=== PATIENT | male | born 1990 | race Caucasian/White ===

== ENCOUNTER 2021-05-21 14:49 | Emergency (ER) | payer MEDICAID ==
[2021-05-21] MEDS ORDERED: Ondansetron 4 MG/2 ML SDV IVPUSH ONE ×2 (15:12→16:22)
[2021-05-21] MEDS ORDERED: HYDROmorphone 0.5 MG/0.5 ML Syringe IVPUSH ONE (15:12)
[2021-05-21] MEDS ORDERED: Sodium Chloride 0.9% 10 ML Syringe FLUSH PRN (15:12)
[2021-05-21] MEDS ORDERED: Sodium Chloride 0.9% 1,000 ML IV STA ×2 (15:12→18:34)
[2021-05-21] MEDS ORDERED: Diatrizoate Meglumine/Diatrizoate Sodium 37% 120 ML Bottle PO ONE (17:21)
[2021-05-21] MEDS ORDERED: Iopamidol 612 MG/ML 100 ML Bottle IVPUSH ONE (17:21)
[2021-05-21] MEDS ORDERED: Iopamidol 612 MG/ML 50 ML SDV IVPUSH ONE (17:22)
--- NOTE | 2021-05-21 17:56 | CT ---
CT abdomen and pelvis Technique: Multiple axial sections were obtained from above the dome of the diaphragm inferiorly to the pubic symphysis. Intravenous and oral contrast were utilized. Reconstructed coronal and sagittal images were obtained. Delayed images were also obtained through the bladder. Comparison: No previous CT abdomen or pelvis studies available. Findings: Visualized lung bases show nothing acute. Pectus excavatum deformity is noted. Liver shows diminished density next to the ligamentum teres which is incidental. Liver shows nothing acute. Spleen size is normal. Adrenal glands show no nodule. Gallbladder contains no calcified gallstones. Kidneys show symmetric contrast enhancement without hydronephrosis or mass. Pancreas shows no discrete abnormality. Abdominal aorta shows no aneurysm. No retroperitoneal adenopathy or mesenteric abnormalities are seen. Appendix is seen which is normal. No pelvic mass or adenopathy is seen. No free fluid or inflammatory change is seen. Slight increased stool is noted throughout the colon. Delayed images shows contrast within the distal ureters and within the bladder. Bone window settings were reviewed which appears within normal limits for the patient's age. Impression: 1. Mild increased stool within the colon. 2. Pectus excavatum deformity. 3. Nothing acute is otherwise seen on CT study of the abdomen and pelvis. Diagnostic code #2
--- NOTE | 2021-05-21 18:16 | EDM.PDOC ---
ED HPI GENERAL MEDICAL PROBLEM - General Chief Complaint: Genitourinary Problem Stated Complaint: VOMITING RED URINE KIDNEY AREA PAIN Time Seen by Provider: 05/21/21 14:54 Source of Information: Reports: Patient, RN Notes Reviewed History Limitations: Reports: No Limitations - History of Present Illness INITIAL COMMENTS - FREE TEXT/NARRATIVE: Patient is a 30-year-old male presenting to the emergency department with complaints of nausea and vomiting, low back pain, and dark urine. He developed nausea and vomiting last evening. He last voided around 2:00 this morning and states that his urine was quite dark in color. He suspects there may have been blood in it. He complains of bilateral low back pain. He has some generalized abdominal pain which she states started after he had vomited a few times. The time of his onset of vomiting, he had no abdominal pain. Patient has a history of kidney stones with the last being approximately 4 years ago. States this feels similar to that occurrence. Last bowel movement was yesterday, however he states it was quite difficult for him to go. He states he does feel constipated. He is from [place] and [place]. Denies any fever or chills, but states he does get sweaty when he vomits. Denies any chronic medical conditions. Lower Back Pain Score (Numeric/FACES): 7 - Related Data Allergies Allergy/AdvReac Type Severity Reaction Status Date / Time No Known Allergies Allergy Verified 05/21/21 15:14 Home Meds: Home Meds . 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 Denies: Fever, Chills HEENT: Reports: No Symptoms Respiratory: Reports: No Symptoms Cardiovascular: Reports: No Symptoms Endocrine: Reports: No Symptoms GI/Abdominal: Reports: Abdominal Pain (Generalized), Constipation, Nausea, Vomiting. Denies: Bloody Stool, Diarrhea : Reports: Hematuria Musculoskeletal: Reports: Back Pain (Bilateral low back) Skin: Reports: No Symptoms Neurological: Reports: No Symptoms Psychiatric: Reports: No Symptoms Hematologic/Lymphatic: Reports: No Symptoms Immunologic: Reports: No Symptoms ED EXAM, RENAL/ - Physical Exam Exam: See Below Exam Limited By: No Limitations General Appearance: Alert, Mild Distress, Active Emesis Respiratory/Chest: No Respiratory Distress, Lungs Clear, Normal Breath Sounds, No Accessory Muscle Use, Chest Non-Tender Cardiovascular: Normal Peripheral Pulses, Regular Rate, Rhythm, No Edema, No Gallop, No JVD, No Murmur, No Rub GI/Abdominal: Normal Bowel Sounds, Soft, No Organomegaly, No Distention, No Abnormal Bruit, No Mass, Tender (Mild generalized tenderness throughout). No: Guarding, Rigid, Rebound Back Exam: Normal Inspection, Full Range of Motion, Paraspinal Tenderness (Bilateral low back). No: CVA Tenderness (L), CVA Tenderness (R) Neurological: Alert, Oriented, CN II-XII Intact, Normal Cognition, Normal Gait, Normal Reflexes, No Motor/Sensory Deficits Psychiatric: Normal Affect, Normal Mood Skin Exam: Warm, Dry, Intact, Normal Color, No Rash Course - Vital Signs Last Recorded V/S: Last Vital Signs Temp 97.9 F 05/21/21 18:43 Pulse 82 05/21/21 18:43 Resp 16 05/21/21 18:43 BP 148/79 H 05/21/21 18:43 Pulse Ox 100 05/21/21 18:43 - Orders/Labs/Meds Orders: Active Orders 24 hr Category Date Time Status Peripheral IV Care [RC] . DIRECTED Care 05/21/21 15:12 Active Sodium Chloride 0.9% [Saline Flush] Med 05/21/21 15:12 Active 10 ml FLUSH ASDIRECTED PRN Peripheral IV Insertion Adult [OM.PC] Stat Oth 05/21/21 15:12 Ordered Medication Orders Sodium Chloride (Sodium Chloride 0.9% 10 Ml Syringe) 10 ml FLUSH ASDIRECTED PRN PRN Reason: Keep Vein Open Last Admin: 05/21/21 15:51 Dose: 10 ml Documented by: KEESHA Labs: Laboratory Tests 05/21/21 05/21/21 05/21/21 Range/Units 15:40 15:40 17:00 WBC 23.73 H (4.23-9.07) K/mm3 RBC 5.92 (4.63-6.08) M/mm3 Hgb 16.9 (13.7-17.5) gm/dl Hct 48.6 (40.1-51.0) % MCV 82.1 (79.0-92.2) fl MCH 28.5 (25.7-32.2) pg MCHC 34.8 (32.2-35.5) g/dl RDW Std Deviation 40.7 (35.1-43.9) fL Plt Count 373 H (163-337) K/mm3 MPV 10.1 (9.4-12.3) fl Neut % (Auto) 82.9 H (34.0-67.9) % Lymph % (Auto) 7.5 L (21.8-53.1) % [place] % (Auto) 8.8 (5.3-12.2) % Eos % (Auto) 0 L (0.8-7.0) Baso % (Auto) 0.5 (0.1-1.2) % Neut # (Auto) 19.69 H (1.78-5.38) K/mm3 Lymph # (Auto) 1.77 (1.32-3.57) K/mm3 [place] # (Auto) 2.09 H (0.30-0.82) K/mm3 Eos # (Auto) 0.00 L (0.04-0.54) K/mm3 Baso # (Auto) 0.11 H (0.01-0.08) K/mm3 Manual Slide Review Abnormal smear Sodium 145 (136-145) mEq/L Potassium 3.4 L (3.5-5.1) mEq/L Chloride 97 L (98-107) mEq/L Carbon Dioxide 33 H (21-32) mEq/L Anion Gap 18.4 H (5-15) BUN 28 H (7-18) mg/dL Creatinine 1.6 H (0.7-1.3) mg/dL Est Cr Clr Drug Dosing 84.39 mL/min Estimated GFR (MDRD) 52 (>60) mL/min BUN/Creatinine Ratio 17.5 (14-18) Glucose 134 H (70-99) mg/dL Calcium 10.8 H (8.5-10.1) mg/dL Total Bilirubin 1.0 (0.2-1.0) mg/dL AST 19 (15-37) U/L ALT 18 (16-63) U/L Alkaline Phosphatase 103 (46-116) U/L Creatine Kinase 216 (39-308) U/L C-Reactive Protein <0.2 (<1.0) mg/dL Total Protein 10.1 H (6.4-8.2) g/dl Albumin 5.9 H (3.4-5.0) g/dl Globulin 4.2 gm/dL Albumin/Globulin Ratio 1.4 (1-2) Urine Color Dark yellow (Yellow) Urine Appearance Slt cloudy H (Clear) Urine pH 7.0 (5.0-8.0) Ur Specific [place] 1.025 (1.005-1.030) Urine Protein 3+ H (Negative) Urine Glucose (UA) Negative (Negative) Urine Ketones 2+ H (Negative) Urine Occult Blood Negative (Negative) Urine Nitrite Negative (Negative) Urine Bilirubin 1+ H (Negative) Urine Urobilinogen 0.2 (0.2-1.0) Ur Leukocyte Esterase Negative (Negative) U Hyaline Cast (Auto) 10-20 H (0-5) /lpf Urine RBC 0-5 (0-5) /hpf Urine WBC 0-5 (0-5) /hpf Ur Epithelial Cells 0-5 (0-5) /hpf Urine Bacteria Moderate H (FEW) /hpf Urine Mucus Many H (FEW) /hpf Meds: Medications Generic Name Dose Route Start Last Admin Trade Name Freq PRN Reason Stop Dose Admin Sodium Chloride 10 ml 05/21/21 15:12 05/21/21 15:51 Sodium Chloride 0.9% 10 Ml Syringe FLUSH 10 ml ASDIRECTED PRN Administration Keep Vein Open Discontinued Medications Generic Name Dose Route Start Last Admin Trade Name Freq PRN Reason Stop Dose Admin Diatrizoate Meglum/Diatrizoate Sod 90 ml 05/21/21 17:21 05/21/21 17:33 Diatrizoate Meglumine/Diatrizoate Sodium 37% 120 Ml Bottle PO 05/21/21 17:22 90 ml ONETIME ONE Administration Hydromorphone HCl 0.5 mg 05/21/21 15:12 05/21/21 15:50 Hydromorphone 0.5 Mg/0.5 Ml Syringe IVPUSH 05/21/21 15:13 0.5 mg ONETIME ONE Administration Sodium Chloride 1,000 mls @ 999 mls/hr 05/21/21 15:12 05/21/21 15:51 Normal Saline IV 05/21/21 16:12 999 mls/hr NOW STA Administration Sodium Chloride 1,000 mls @ 999 mls/hr 05/21/21 18:34 05/21/21 18:40 Normal Saline IV 05/21/21 19:34 999 mls/hr NOW STA Administration Iopamidol 100 ml 05/21/21 17:21 05/21/21 17:33 Iopamidol 612 Mg/Ml 100 Ml Bottle IVPUSH 05/21/21 17:22 100 ml ONETIME ONE Administration Iopamidol 50 ml 05/21/21 17:22 05/21/21 17:33 Iopamidol 612 Mg/Ml 50 Ml Sdv IVPUSH 05/21/21 17:23 25 ml ONETIME ONE Administration Magnesium Citrate 296 ml 05/21/21 18:18 05/21/21 18:35 Magnesium Citrate Solution 296 Ml Bottle PO 05/21/21 18:19 296 ml ONETIME ONE Administration Metoclopramide HCl 7.5 mg 05/21/21 18:19 05/21/21 18:35 Metoclopramide 10 Mg/2 Ml Sdv IVPUSH 05/21/21 18:20 7.5 mg ONETIME ONE Administration Ondansetron HCl 4 mg 05/21/21 15:12 05/21/21 15:47 Ondansetron 4 Mg/2 Ml Sdv IVPUSH 05/21/21 15:13 4 mg ONETIME ONE Administration Ondansetron HCl 4 mg 05/21/21 16:22 05/21/21 16:25 Ondansetron 4 Mg/2 Ml Sdv IVPUSH 05/21/21 16:23 4 mg ONETIME ONE Administration - Re-Assessments/Exams Free Text/Narrative Re-Assessment/Exam: Patient is a 30-year-old male presenting to the emergency department with complaints of nausea vomiting, low back pain, and possible blood in his urine. He reports that he developed nausea and vomiting last evening. He has some mild generalized abdominal discomfort but states that this only occurred after he had vomited a few times. He last voided around 2 AM and states that it was dark in color, therefore he feels there may have been blood in it. Last bowel movement was yesterday, however states it was quite difficult for him to go. He states that he feels constipated that he feels constipated. He does have a history of kidney stones. On exam, he has some mild generalized abdominal tenderness but no severe localized pain. Negative CVA tenderness bilateral. Mild tenderness to palpation to low back paraspinous muscles. I have ordered blood work, urinalysis, CT scan of the abdomen pelvis. We will give a 1 L bolus of normal saline, Dilaudid 0.5 mg IV, and Zofran 4 mg IV. 05/21/21 1625 Patient reports increased nausea with drinking the oral contrast. I ordered a second dose of IV Zofran. 05/21/21 18:16 Hematology significant for WBC elevated at 23.73 with a left shift. There is no bandemia however. Potassium slightly low at 3.4, CO2 elevated 33, anion gap 18.4, BUN 28, creatinine 1.6. CRP is normal at less than 0.2. Urinalysis shows 3+ protein, 2+ ketones, 1+ bili. It is negative for infection and blood. Results of the CT scan pression as follows: 1. Mild increased stool within the colon. 2. Pectus excavating deformity. 3. Nothing acute is otherwise seen on CT study of the abdomen and pelvis. Patient is feeling much better. His symptoms are likely related to constipation. We will send him home with a bottle of magnesium citrate. I also give him an [facility] prescription for Zofran. Elevation of white blood cells is likely due to stress response given his normal CRP. Discussed return precautions. Discharge instructions as documented. Departure - Departure Time of Disposition: 18:16 Disposition: Home, Self-Care 01 Condition: Good Clinical Impression: Nausea and vomiting Qualifiers: Vomiting type: unspecified Vomiting Intractability: non-intractable Qualified Code(s): R11.2 - Nausea with vomiting, unspecified Constipation Qualifiers: Constipation type: unspecified constipation type Qualified Code(s): K59.00 - Constipation, unspecified - Discharge Information *PRESCRIPTION DRUG MONITORING PROGRAM REVIEWED*: No *COPY OF PRESCRIPTION DRUG MONITORING REPORT IN PATIENT RACHID: No Instructions: Constipation, Adult Referrals: PCP,None [Primary Care Provider] - Forms: ED Department Discharge, ED Return to Work/School Form Additional Instructions: You were seen in the emergency department today for nausea vomiting, low back pain, and dark urine. Work-up included blood work, urinalysis, and a CT scan of your abdomen pelvis. Results of your white work-up did show an elevated white blood cell count which is likely a stress response. Your urine did not show any signs of blood or infection. CT scan showed increased stool throughout your colon but no other abnormalities. While in the ER, you received IV fluids, nausea medication, and pain medication. You have been sent home with a bottle of magnesium citrate which is a laxative. Recommend that you drink this is in its entirety when you arrive to your living quarters. You have been provided a prescription for Zofran as well. Use this as prescribed. Increase your fluid intake is much as tolerated. If you are feeling better tomorrow, you may return to work. Return to ER for any new or worsening symptoms of concern. Sepsis Event Note (ED) - Evaluation Sepsis Screening Result: No Definite Risk - Focused Exam Vital Signs: Vital Signs Temp Pulse Resp BP Pulse Ox 05/21/21 18:43 97.9 F 82 16 148/79 H 100 05/21/21 16:32 98.4 F 83 16 144/78 H 99 05/21/21 15:36 98.1 F 67 16 132/92 H 99 05/21/21 15:08 98.5 F 71 20 130/90 100 - My Orders Last 24 Hours: My Active Orders 05/21/21 15:12 Peripheral IV Care [RC] . DIRECTED Sodium Chloride 0.9% [Saline Flush] 10 ml FLUSH ASDIRECTED PRN Peripheral IV Insertion Adult [OM.PC] Stat - Assessment/Plan Last 24 Hours: My Active Orders 05/21/21 15:12 Peripheral IV Care [RC] . DIRECTED Sodium Chloride 0.9% [Saline Flush] 10 ml FLUSH ASDIRECTED PRN Peripheral IV Insertion Adult [OM.PC] Stat
[2021-05-21] MEDS ORDERED: Magnesium Citrate Solution 296 ML Bottle PO ONE (18:18)
[2021-05-21] MEDS ORDERED: Metoclopramide 10 MG/2 ML SDV IVPUSH ONE (18:19)
== END 2021-05-21 19:44 | disposition home or self-care (01) ==
LOC: JD.ED 14:49
DX: K59.00 Constipation, unspecified (principal); R11.2 Nausea with vomiting, unspecified; Z87.442 Personal history of urinary calculi
CPT/HCPCS: 36415; 74177; 80053; 81001; 82550; 85025; 86140; 96374; 96375; 96376; 99284; A9270; J1170; J2405; J2765; J7030; Q9963; Q9967

== ENCOUNTER 2021-05-23 12:00 | Emergency (ER) | payer MEDICAID ==
[2021-05-23] MEDS ORDERED: Sodium Chloride 0.9% 10 ML Syringe FLUSH PRN (12:29)
[2021-05-23] MEDS ORDERED: Metoclopramide 10 MG/2 ML SDV IVPUSH ONE (12:31)
[2021-05-23] MEDS ORDERED: Sodium Chloride 0.9% 1,000 ML IV STA (12:31)
[2021-05-23] MEDS ORDERED: Famotidine 20 MG/2 ML SDV IVPUSH ONE (12:35)
--- NOTE | 2021-05-23 13:13 | CR ---
Abdomen: Upright and supine views of the abdomen were obtained. Comparison: CT abdomen and pelvis exam performed on 05/21/21. Mild increased stool is seen within the colon which is similar to prior CT exam. Bowel gas pattern is otherwise unremarkable. No free air is seen. Visualized lung bases are clear. No soft tissue abnormality is appreciated. Bony structures are within normal limits. Impression: 1. Mild increased stool within the colon. 2. No additional abnormality is appreciated on 2 view abdominal x-ray. Diagnostic code #2
--- NOTE | 2021-05-23 13:19 | EDM.PDOC ---
ED HPI GENERAL MEDICAL PROBLEM - General Chief Complaint: Back Pain or Injury Stated Complaint: FLANK PAIN Time Seen by Provider: 05/23/21 12:17 Source of Information: Reports: Patient, RN Notes Reviewed History Limitations: Reports: No Limitations - History of Present Illness INITIAL COMMENTS - FREE TEXT/NARRATIVE: Patient is a 30-year-old male returning to the emergency department with complaints of ongoing nausea and vomiting, low back pain, and no bowel movement since last Saturday. He was seen in this emergency department 2 days ago for the same complaint. CT scan was completed that time and showed some increased stool but no acute abnormalities. He was sent home with magnesium citrate and Zofran. Patient reports that he vomited up the magnesium citrate after drinking it. He has still not had a bowel movement. Reports vomiting each time that he drinks something. He has not been able to eat. He denies any fever, chills, or abdominal pain other than some cramping when he vomits. He has had no blood in his emesis. Patient reports that he has had gastritis in the past and had a previous abdominal surgery as a child but cannot remember what it was for. Lower Back Pain Score (Numeric/FACES): 10 - Related Data Allergies Allergy/AdvReac Type Severity Reaction Status Date / Time No Known Allergies Allergy Verified 05/23/21 12:13 Home Meds: Home Meds Amitriptyline [Elavil] 25 mg PO BEDTIME 05/23/21 [History] Divalproex Sodium [Divalproex Sodium ER] 250 mg PO BID 05/23/21 [History] Levothyroxine [Synthroid] 100 mcg PO DAILY 05/23/21 [History] Metoclopramide HCl 10 mg PO Q6H PRN #8 tablet 05/23/21 [Rx] Ondansetron [Zofran ODT] 4 mg SL Q4H PRN 05/23/21 [History] QUEtiapine Fumarate [Seroquel] 200 mg PO BEDTIME 05/23/21 [History] Past Medical History Gastrointestinal History: Reports: Gastritis Genitourinary History: Reports: Renal Calculus Musculoskeletal History: Reports: Other (See Below) Other Musculoskeletal History: 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 Endocrine/Metabolic History: Reports: Hypothyroidism - Infectious Disease History Infectious Disease History: Reports: Chicken Pox Social & Family History - Tobacco Use Tobacco Use Status *Q: Never Tobacco User Second Hand Smoke Exposure: No - Caffeine Use Caffeine Use: Reports: Coffee, Soda, Tea - Recreational Drug Use Recreational Drug Use: No ED ROS GENERAL - Review of Systems Review Of Systems: Comprehensive ROS is negative, except as noted in HPI. ED EXAM, GI/ABD - Physical Exam Exam: See Below Exam Limited By: No Limitations General Appearance: Alert, WD/WN, No Apparent Distress Respiratory/Chest: No Respiratory Distress, Lungs Clear, Normal Breath Sounds, No Accessory Muscle Use, Chest Non-Tender Cardiovascular: Normal Peripheral Pulses, Regular Rate, Rhythm, No Edema, No Gallop, No JVD, No Murmur, No Rub GI/Abdominal Exam: Soft, Non-Tender, No Organomegaly, No Distention, No Abnormal Bruit, No Mass, Pelvis Stable, Abnormal Bowel Sounds (hypoactive) Neurological: Alert, Oriented, CN II-XII Intact, Normal Cognition, Normal Gait, Normal Reflexes, No Motor/Sensory Deficits Psychiatric: Normal Affect, Normal Mood Skin Exam: Warm, Dry, Intact, Normal Color, No Rash Course - Vital Signs Last Recorded V/S: Last Vital Signs Temp 99.7 F 05/23/21 14:55 Pulse 58 L 05/23/21 14:55 Resp 16 05/23/21 14:55 BP 127/86 05/23/21 14:55 Pulse Ox 98 05/23/21 14:55 - Orders/Labs/Meds Labs: Laboratory Tests 05/23/21 05/23/21 05/23/21 Range/Units 12:55 12:55 12:55 WBC 15.60 H (4.23-9.07) K/mm3 RBC 5.36 (4.63-6.08) M/mm3 Hgb 14.9 D (13.7-17.5) gm/dl Hct 45.7 (40.1-51.0) % MCV 85.3 D (79.0-92.2) fl MCH 27.8 (25.7-32.2) pg MCHC 32.6 (32.2-35.5) g/dl RDW Std Deviation 41.9 (35.1-43.9) fL Plt Count 293 D (163-337) K/mm3 MPV 10.0 (9.4-12.3) fl Neut % (Auto) 75.5 H (34.0-67.9) % Lymph % (Auto) 13.2 L (21.8-53.1) % [place] % (Auto) 10.3 (5.3-12.2) % Eos % (Auto) 0.3 L (0.8-7.0) Baso % (Auto) 0.4 (0.1-1.2) % Neut # (Auto) 11.79 H (1.78-5.38) K/mm3 Lymph # (Auto) 2.06 (1.32-3.57) K/mm3 [place] # (Auto) 1.60 H (0.30-0.82) K/mm3 Eos # (Auto) 0.04 (0.04-0.54) K/mm3 Baso # (Auto) 0.06 (0.01-0.08) K/mm3 Manual Slide Review Abnormal smear Sodium 144 (136-145) mEq/L Potassium 3.2 L (3.5-5.1) mEq/L Chloride 100 (98-107) mEq/L Carbon Dioxide 36 H (21-32) mEq/L Anion Gap 11.2 (5-15) BUN 18 (7-18) mg/dL Creatinine 1.2 (0.7-1.3) mg/dL Est Cr Clr Drug Dosing 112.52 mL/min Estimated GFR (MDRD) > 60 (>60) mL/min BUN/Creatinine Ratio 15.0 (14-18) Glucose 107 H (70-99) mg/dL Lactic Acid 1.1 (0.4-2.0) mmol/L Calcium 9.6 (8.5-10.1) mg/dL Total Bilirubin 0.8 (0.2-1.0) mg/dL AST 11 L (15-37) U/L ALT 9 L (16-63) U/L Alkaline Phosphatase 81 (46-116) U/L C-Reactive Protein <0.2 (<1.0) mg/dL Total Protein 8.2 (6.4-8.2) g/dl Albumin 4.7 (3.4-5.0) g/dl Globulin 3.5 gm/dL Albumin/Globulin Ratio 1.3 (1-2) Urine Color (Yellow) Urine Appearance (Clear) Urine pH (5.0-8.0) Ur Specific [place] (1.005-1.030) Urine Protein (Negative) Urine Glucose (UA) (Negative) Urine Ketones (Negative) Urine Occult Blood (Negative) Urine Nitrite (Negative) Urine Bilirubin (Negative) Urine Urobilinogen (0.2-1.0) Ur Leukocyte Esterase (Negative) U Hyaline Cast (Auto) (0-5) /lpf Urine RBC (0-5) /hpf Urine WBC (0-5) /hpf Ur Squamous Epith Cells (0-5) /hpf Urine Bacteria (FEW) /hpf Urine Mucus (FEW) /hpf Ketones (0.0-0.3) mM 05/23/21 05/23/21 Range/Units 12:55 14:35 WBC (4.23-9.07) K/mm3 RBC (4.63-6.08) M/mm3 Hgb (13.7-17.5) gm/dl Hct (40.1-51.0) % MCV (79.0-92.2) fl MCH (25.7-32.2) pg MCHC (32.2-35.5) g/dl RDW Std Deviation (35.1-43.9) fL Plt Count (163-337) K/mm3 MPV (9.4-12.3) fl Neut % (Auto) (34.0-67.9) % Lymph % (Auto) (21.8-53.1) % [place] % (Auto) (5.3-12.2) % Eos % (Auto) (0.8-7.0) Baso % (Auto) (0.1-1.2) % Neut # (Auto) (1.78-5.38) K/mm3 Lymph # (Auto) (1.32-3.57) K/mm3 [place] # (Auto) (0.30-0.82) K/mm3 Eos # (Auto) (0.04-0.54) K/mm3 Baso # (Auto) (0.01-0.08) K/mm3 Manual Slide Review Sodium (136-145) mEq/L Potassium (3.5-5.1) mEq/L Chloride (98-107) mEq/L Carbon Dioxide (21-32) mEq/L Anion Gap (5-15) BUN (7-18) mg/dL Creatinine (0.7-1.3) mg/dL Est Cr Clr Drug Dosing mL/min Estimated GFR (MDRD) (>60) mL/min BUN/Creatinine Ratio (14-18) Glucose (70-99) mg/dL Lactic Acid (0.4-2.0) mmol/L Calcium (8.5-10.1) mg/dL Total Bilirubin (0.2-1.0) mg/dL AST (15-37) U/L ALT (16-63) U/L Alkaline Phosphatase (46-116) U/L C-Reactive Protein (<1.0) mg/dL Total Protein (6.4-8.2) g/dl Albumin (3.4-5.0) g/dl Globulin gm/dL Albumin/Globulin Ratio (1-2) Urine Color Dark yellow (Yellow) Urine Appearance Clear (Clear) Urine pH 7.0 (5.0-8.0) Ur Specific [place] 1.020 (1.005-1.030) Urine Protein 2+ H (Negative) Urine Glucose (UA) Negative (Negative) Urine Ketones 1+ H (Negative) Urine Occult Blood Negative (Negative) Urine Nitrite Negative (Negative) Urine Bilirubin 2+ H (Negative) Urine Urobilinogen 1.0 (0.2-1.0) Ur Leukocyte Esterase Negative (Negative) U Hyaline Cast (Auto) 0-5 (0-5) /lpf Urine RBC 0-5 (0-5) /hpf Urine WBC 0-5 (0-5) /hpf Ur Squamous Epith Cells Not seen (0-5) /hpf Urine Bacteria Moderate H (FEW) /hpf Urine Mucus Moderate H (FEW) /hpf Ketones 0.13 (0.0-0.3) mM Meds: Medications Discontinued Medications Generic Name Dose Route Start Last Admin Trade Name Freq PRN Reason Stop Dose Admin Famotidine 20 mg 05/23/21 12:35 05/23/21 13:01 Famotidine 20 Mg/2 Ml Sdv IVPUSH 05/23/21 12:36 20 mg ONETIME ONE Administration Sodium Chloride 1,000 mls @ 999 mls/hr 05/23/21 12:31 05/23/21 13:03 Normal Saline IV 05/23/21 13:31 999 mls/hr NOW STA Administration Metoclopramide HCl 7.5 mg 05/23/21 12:31 05/23/21 12:59 Metoclopramide 10 Mg/2 Ml Sdv IVPUSH 05/23/21 12:32 7.5 mg ONETIME ONE Administration Polyethylene Glycol 85 gm 05/23/21 14:42 05/23/21 14:54 Polyethylene Glycol 3350 Powder 17 Gm Packet PO 05/23/21 14:43 85 gm ONETIME ONE Administration Sodium Chloride 10 ml 05/23/21 12:29 05/23/21 13:03 Sodium Chloride 0.9% 10 Ml Syringe FLUSH 10 ml ASDIRECTED PRN Administration Keep Vein Open - Re-Assessments/Exams Free Text/Narrative Re-Assessment/Exam: Patient is a 30-year-old male presenting to the emergency department with complaints of continued nausea and vomiting, low back pain, and no bowel movement since Saturday. He was seen here 2 days ago. Complete work-up was done at that time. CT scan showed no acute abnormalities. He received IV fluids and nausea medications. He was sent home with magnesium citrate for constipation. Patient reports that he vomited the magnesium citrate up and has been having difficulty keeping down fluids since that time. He is unable to eat. Denies any abdominal pain. On exam, he has no tenderness over his abdomen. He does have low back tenderness in the paraspinous muscles.. No CVA tenderness. I have ordered blood work, urinalysis, and abdomen flat and upright x-ray. We will start a 1 L bolus of normal saline as well as Reglan 7.5 mg IV and Pepcid 20 mg IV. 05/23/21 1255 X-ray of the abdomen shows a significant amount of stool in the colon. There is no small bowel distention or air-fluid levels to suggest obstruction. I have ordered a soapsuds enema to be given. 05/23/21 1335 Hematology significant for WBC elevated at 15.6, potassium 3.2, CO2 36. Patient does not appear to be significantly dehydrated anyway. He still complains of nausea, however has not had the enema thus far. Urinalysis is pending. 05/23/21 14:40 Patient had a large bowel movement after the enema and states that he feels much better. His nausea has resolved. Recommend 5 packets of MiraLAX with Gatorade as well. 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 I will also write prescription for Reglan for nausea, however he will likely not need this once he is able to completely empty his bowels. Patient reports that he has not been taking his Seroquel so interaction with the Reglan is not a concern at this time. Did discuss with him that once he resumes taking his Seroquel, he should consider taking MiraLAX daily as this can cause constipation. Discharge instructions as documented. Departure - Departure Time of Disposition: 14:50 Disposition: Home, Self-Care 01 Condition: Good Clinical Impression: Nausea and vomiting Qualifiers: Vomiting type: unspecified Vomiting Intractability: non-intractable Qualified Code(s): R11.2 - Nausea with vomiting, unspecified Constipation Qualifiers: Constipation type: unspecified constipation type Qualified Code(s): K59.00 - Constipation, unspecified - Discharge Information *PRESCRIPTION DRUG MONITORING PROGRAM REVIEWED*: No *COPY OF PRESCRIPTION DRUG MONITORING REPORT IN PATIENT RACHID: No Prescriptions: Metoclopramide HCl 10 mg PO Q6H PRN #8 tablet PRN Reason: Nausea/Vomiting Instructions: Constipation, Adult, Nausea and Vomiting, Adult Referrals: PCP,None [Primary Care Provider] - Forms: ED Department Discharge, ED Return to Work/School Form Additional Instructions: You were seen in the emergency department today for ongoing nausea and vomiting and not having a bowel movement since Saturday. Blood work, urinalysis, and an abdominal x-ray. Blood work was found to be essentially normal. Your potassium was slightly low. While in the ER, you received a liter of IV fluids and nausea medication. Your abdominal x-ray showed a significant amount of stool throughout your colon. You had a soapsuds enema which did cause you to have a bowel movement and you report that you feel much better now. You have been sent home with a mixture of 5 doses of MiraLAX and Gatorade. Recommend that you drink this once you get back to [place]. This should produce a number of bowel movements, some of which may be loose. Prescription for Reglan for nausea has been sent to [facility]. Take this as prescribed. Do not take the Zofran and the Reglan together. Do not take this medication while you are taking your Seroquel. Once you resume taking her Seroquel, I would recommend that you take a dose of MiraLAX daily to help regulate your bowels. Ensure that you are taking in enough fluid. If you should experience any worsening symptoms, please not hesitate to return to the emergency department for reevaluation. Sepsis Event Note (ED) - Evaluation Sepsis Screening Result: No Definite Risk
[2021-05-23] MEDS ORDERED: Polyethylene Glycol 3350 Powder 17 GM Packet PO ONE (14:42)
== END 2021-05-23 15:21 | disposition home or self-care (01) ==
LOC: JD.ED 12:00
DX: K59.00 Constipation, unspecified (principal); E03.9 Hypothyroidism, unspecified; Z79.899 Other long term (current) drug therapy
CPT/HCPCS: 36415; 74019; 80053; 81001; 82009; 83605; 85025; 86140; 96374; 96375; 99284; A9270; J2765; J3490; J7030